=== PATIENT | male | born 2000 | race American Indian/Alaskan Native ===

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

== ENCOUNTER 2022-06-25 20:00 | Emergency (ER) | payer SELFPAY ==
[2022-06-25] MEDS ORDERED: SODIUM CHLORIDE 0.9% 1000 ML 2,000 ML IV ONE (20:55)
--- NOTE | 2022-06-25 21:20 | Emergency Department Report ---
ED General Adult HPI - General Chief complaint: Seizure Stated complaint: SEIZURE PUI?: No Time Seen by Provider: 06/25/22 20:47 Source: patient, EMS Mode of arrival: Stretcher Limitations: No Limitations - History of Present Illness Initial comments: 22 YEAR OLD MALE BROUGHT IN BY QUILTING MACHINE OPERATOR WITH CONCERN OF SEIZURE EPISODE WH ICH WAS WITNESS BY BYSTANDER AT THE GROCERY. WHEN QUILTING MACHINE OPERATOR ARRIVED AT THE SCENE, PATIENT WAS POSTICTAL PER QUILTING MACHINE OPERATOR BUT NOW AOX4. PATIENT HAS HISTORY OF SEIZURE AND WAS PREVIOUSLY ON KEPPRA AND STOPPED TAKING IT ABOUT 6 MONTHS AGO BECAUSE RAN OUT OF MEDICATION. NO OTHER MEDICAL CONDITIONS. UNKNOWN DURATION OF SEIZURE BUT PATIENT DID HIT HIS HEAD. AT THE TIME OF MY EVALUATION, PATIENT AGREE WHAT THE QUILTING MACHINE OPERATOR PROVIDED TO ME AND DENIES ANY DISCOMFORT. - Related Data Previous Rx's Medication Instructions Recorded Last Taken Type levETIRAcetam [Keppra TAB] 500 mg PO BID 30 Days #60 tablet 06/25/22 Unknown Rx Allergies Allergy/AdvReac Type Severity Reaction Status Date / Time No Known Allergies Allergy Unverified 05/17/18 16:11 ED Review of Systems ROS: Stated complaint: SEIZURE Other details as noted in HPI Comment: All other systems reviewed and negative Constitutional: no symptoms reported, see HPI Eyes: as per HPI ENT: as per HPI Respiratory: no symptoms reported, see HPI Cardiovascular: as per HPI Endocrine: no symptoms reported, see HPI Gastrointestinal: as per HPI Genitourinary: as per HPI Musculoskeletal: as per HPI Skin: as per HPI Neurological: denies: headache, weakness, numbness, paresthesias, confusion, abnormal gait Psychiatric: as per HPI Hematological/Lymphatic: as per HPI ED Past Medical Hx - Past Medical History Previous Medical History?: Yes Hx Seizures: Yes - Surgical History Past Surgical History?: No - Social History Smoking Status: Unknown if ever smoked - Medications Home Medications: Home Medications Medication Instructions Recorded Confirmed Last Taken Type levETIRAcetam [Keppra TAB] 500 mg PO BID 30 Days #60 tablet 06/25/22 Unknown Rx ED Physical Exam - General Limitations: No Limitations General appearance: alert, in no apparent distress - Head Head exam: Present: atraumatic, normocephalic, normal inspection - Eye Eye exam: Present: normal appearance, PERRL, EOMI Pupils: Present: normal accommodation - ENT ENT exam: Present: normal exam, mucous membranes moist - Neck Neck exam: Present: normal inspection, full ROM - Respiratory Respiratory exam: Present: normal lung sounds bilaterally - Cardiovascular Cardiovascular Exam: Present: regular rate, normal rhythm, normal heart sounds - GI/Abdominal GI/Abdominal exam: Present: soft - Extremities Exam Extremities exam: Present: normal inspection, full ROM, normal capillary refill - Back Exam Back exam: Present: normal inspection, full ROM - Neurological Exam Neurological exam: Present: alert, oriented X3, CN II-XII intact - Psychiatric Psychiatric exam: Present: normal affect, normal mood - Skin Skin exam: Present: normal color ED Course Vital Signs 06/25/22 06/25/22 20:18 21:28 Temperature 97.9 F Pulse Rate 92 H 71 Respiratory 18 16 Rate Blood Pressure 106/60 Blood Pressure 108/68 [Right] O2 Sat by Pulse 100 100 Oximetry ED Medical Decision Making - Lab Data Result diagrams: 06/25/22 21:04 06/25/22 21:04 Critical care attestation.: If time is entered above; I have spent that time in minutes in the direct care of this critically ill patient, excluding procedure time. ED Disposition Clinical Impression: Seizure, Medically noncompliant Disposition: 01 HOME / SELF CARE / HOMELESS Is pt being admited?: No Does the pt Need Aspirin: No Condition: Stable Instructions: Epilepsy, [id number] Additional Instructions: grinder set up operator surface the prescription of Keppra and start taking it every 12 hours and also to make a follow-up appointment with primary care provider of his choice to be seen within 3 days so you can get a neurologist referral if you do not have one. Do not to do anything that would require your full attention such as driving, skydiving, swimming etc. until you are seen and cleared by the neurologist. Prescriptions: levETIRAcetam [Keppra TAB] 500 mg PO BID 30 Days #60 tablet Forms: Work/School Release Form(ED) Time of Disposition: 21:20
[2022-06-25] MEDS: levETIRAcetam 1,500 MG in DEXTROSE 5% IN WATER 100 ML IV ONE ×2 (21:26→23:44)
[2022-06-25 21:32] LABS: Hematocrit 46.2 % (35.5-45.6); Hemoglobin 15.4 gm/dl (11.8-15.2); Mean Corpuscular HGB Conc 33 % (32-34); Mean Corpuscular Volume 81 fl (84-94); Platelet Count 248 K/mm3 (140-440); Red Blood Count 5.71 M/mm3 (3.65-5.03); Red Cell Distribution Width 13.4 % (13.2-15.2)
[2022-06-25 21:40] LABS: Alanine Aminotransferase 12 units/L (7-56); Albumin 4.8 g/dL (3.9-5); BUN/Creatinine Ratio 14; Blood Urea Nitrogen 15 mg/dL (9-20); Calcium 9.3 mg/dL (8.4-10.2); Hemolysis Index 23
--- NOTE | 2022-06-25 21:40 | XRay Report ---
CHEST 1 VIEW 06/25/2022 8:31 PM INDICATION / CLINICAL INFORMATION: Seizure WORK UP. COMPARISON: None available. FINDINGS: SUPPORT DEVICES: None. HEART / MEDIASTINUM: No significant abnormality. LUNGS / PLEURA: No significant pulmonary or pleural abnormality. No pneumothorax. ADDITIONAL FINDINGS: No significant additional findings. IMPRESSION: 1. No acute findings. Signer Name: Roderick Tobias MD Signed: 06/25/2022 9:35 PM Workstation Name: [id number]
--- NOTE | 2022-06-25 21:57 | Cat Scan Report ---
CT BRAIN: 06/25/2022 INDICATION / CLINICAL INFORMATION: SEIZURE; HIT HEAD. COMPARISON: None available. FINDINGS: BRAIN/INTRACRANIAL STRUCTURES: Unenhanced CT images of the brain demonstrate no evidence of acute abn ormality. Ventricles and sulci are normal in size and shape. There is no evidence of ischemic injury, hemorrhage, or mass. There are no abnormal extra-axial fluid collections. EXTRACRANIAL STRUCTURES: Unremarkable. IMPRESSION: No acute abnormality All CT scans at this location are performed using dose reduction to ALARA by means of automated expos ure control. Signer Name: Brett Powers MD Signed: 06/25/2022 9:53 PM Workstation Name: [id number]
[2022-06-26 00:09] VITALS: BP 121/88
[2022-06-26] MEDS ORDERED: ACETAMINOPHEN 500 MG TAB ONE (08:09)
[2022-06-26] MEDS ORDERED: CELECOXIB 200 MG CAP ONE (08:09)
[2022-06-26] MEDS ORDERED: fentaNYL 100 MCG/2 ML INJ ONE (08:10)
== END 2022-06-26 00:13 | disposition home or self-care (01) ==
LOC: ED 20:00
DX: R56.9 Unspecified convulsions (principal); Z91.19 Patient's noncompliance with other medical treatment and regimen
CPT/HCPCS: 36415; 70450; 71045; 80053; 82140; 82550; 83735; 85027; 96365; 96366; 99284; J1953; J7030; J7060; 96361; J3010